=== PATIENT | male | born 2005 | race Hispanic/Latino ===

== ENCOUNTER 2025-05-06 11:04 | Emergency (ER) | payer OTHER ==
[~2025-05-06] VITALS: Ht 170.2 cm; Wt 136.1 kg
[2025-05-06 11:15] VITALS: TEMP 99.1
[2025-05-06 12:06] LABS: BASOPHILS % 0.3 % (0.0-1.0); EOSINOPHILS % 0.9 % (0.0-6.0); LYMPHOCYTES % 11.6 % (18.0-39.1); MONOCYTES % 7.3 % (4.4-11.3); NEUTROPHILS % 79.3 % (38.7-80.0); RED CELL DISTRIBUTION WIDTH 13.3 % (11.7-14.4)
[2025-05-06 12:10] LABS: LEUKOCYTE ESTERASE ,URINE SMALL (NEGATIVE); PROTEIN,URINE DIPSTICK NEGATIVE (NEGATIVE); URINE UROBILINOGEN 0.2 mg/dL (0.2 - 1)
[2025-05-06] MEDS: SODIUM CHLORIDE 0.9% 1000ML 1,000 ML IV ONE ×2 (12:26)
[2025-05-06 12:33] LABS: INR 1.07
[2025-05-06 12:34] LABS: EST GLOMERULAR FILTRATION RATE 127.0 ML/MIN (>=60)
[2025-05-06 12:44] LABS: EPITHELIAL CELLS,URINE FEW /LPF; WBC,URINE (MAN) 21-50 /HPF (0-5)
[2025-05-06 15:00] VITALS: PULSE 90; RESP 16; O2SAT 97
[2025-05-06] MEDS ORDERED: IOPAMIDOL 370 MG/ML 100 ML INFUS..BTL INJ ONE (16:05)
[2025-05-06] MEDS ORDERED: CEPHALEXIN500 MG PO (18:13)
== END 2025-05-06 18:51 | disposition home or self-care (01) ==
LOC: ER 11:11
DX: R30.0 Dysuria (principal); N39.0 Urinary tract infection, site not specified; R53.81 Other malaise; Q60.0 Renal agenesis, unilateral
CPT/HCPCS: 36415; 71045; 74177; 80053; 81001; 83036; 83605; 85025; 85610; 85730; 87040; 87086; 99284; J0696; J7030; Q9967; 87186